=== PATIENT | female | born 1945 | race Caucasian/White ===

== ENCOUNTER 2017-04-08 16:55 | Outpatient (CLI) | payer MEDICARE, OTHER | END 2017-04-08 16:56 | disposition critical access hospital (66) | LOC: EMS 16:55 | PROVIDERS: ATTEND Surgery | DX: S81.011A Laceration without foreign body, right knee, initial encounter (principal); W01.0XXA Fall on same level from slipping, tripping and stumbling without subsequent striking against object, initial encounter; Y92.008 Other place in unspecified non-institutional (private) residence as the place of occurrence of the external cause | CPT/HCPCS: A0425; A0429 ==

== ENCOUNTER 2017-04-08 17:14 | Emergency (ER) | payer MEDICARE, OTHER ==
[2017-04-08] MEDS ORDERED: LIDOCAINE MPF 1%-EPI 1:200000 30 ML VIAL ONE (17:21)
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
--- NOTE | 2017-04-08 18:39 | XRAY Preliminary Report ---
Exam: XR Knee 2 View RT IMPRESSION: Heterogeneous prepatellar soft tissue swelling without plain film evidence of underlying fracture. No evidence of hardware dysfunction. If there is high clinical concern for patellar fractur e, sunrise view could be used for further evaluation. [facility] SITE ID: [id number]
--- NOTE | 2017-04-08 18:41 | XRAY Report ---
EXAM: RIGHT KNEE RADIOGRAPHY EXAM DATE: 04/08/2017 06:11 PM. CLINICAL HISTORY: Knee pain COMPARISON: None. TECHNIQUE: 2 views. FINDINGS: Bones: The patella is obscured on frontal view by arthroplasty hardware. No obvious abnormalities on lateral view. Joints: No evidence of dislocation. Patient has undergone right knee arthroplasty. Soft Tissues: There is prepatellar soft tissue swelling. IMPRESSION: Heterogeneous prepatellar soft tissue swelling without plain film evidence of underlying fracture. No evidence of hardware dysfunction. If there is high clinical concern for patellar fractur e, sunrise view could be used for further evaluation. [facility] Referring Provider Line: [phone] SITE ID: [id number]
[2017-04-08 18:58] VITALS: BP 161/72
== END 2017-04-08 19:03 | disposition home or self-care (01) ==
LOC: EDBD → EDUNIT# → ED 17:14
DX: S81.011A Laceration without foreign body, right knee, initial encounter (principal); W01.0XXA Fall on same level from slipping, tripping and stumbling without subsequent striking against object, initial encounter; Y92.89 Other specified places as the place of occurrence of the external cause; R03.0 Elevated blood-pressure reading, without diagnosis of hypertension; Z96.651 Presence of right artificial knee joint
CPT/HCPCS: 12004; 99283; 99284